=== PATIENT | male | born 1970 | race Caucasian/White ===

== ENCOUNTER → 2020-07-13 09:56 | Outpatient (CLI) | payer OTHER, SELFPAY ==
--- NOTE | 2020-07-13 10:01 | DI.US.S_ITS ---
PROCEDURE: US ABDOMEN LIMITED INDICATIONS: Periumbilical swelling, mass or lump TECHNIQUE: Real-time focused scanning was performed of the abdomen, with image documentation. COMPARISON: None. FINDINGS: There is a periumbilical hernia seen, which contains fat. The hernia neck measures 1.1 cm. Scanning is performed without and without Valsalva maneuver. At its largest, the herniated tissue measures 1 x 1.5 x 1.9 cm. IMPRESSION: Fat containing periumbilical hernia. Dictated by: Erwin Cervantes M.D. on 07/13/2020 at 11:08 Approved by: Erwin Cervantes M.D. on 07/13/2020 at 11:09
== END ==
PROVIDERS: PCP Student in an Organized Health Care Education/Training Program; Referring Provider Student in an Organized Health Care Education/Training Program; Visit Provider Student in an Organized Health Care Education/Training Program
DX: K42.9 Umbilical hernia without obstruction or gangrene (principal)
CPT/HCPCS: 76705

== ENCOUNTER → 2020-12-10 19:12 | Outpatient (ROUT) | payer OTHER, SELFPAY ==
[2020-12-13 01:45] LABS: Chlamydia trachomatis NAA Negative (Negative); Neisseria gonorrhoeae NAA Negative (Negative)
[2020-12-13 16:57] LABS: HIV 1 & 2 Ab/Ag 4th Gen Combo NEGATIVE (NEGATIVE)
== END ==
PROVIDERS: PCP Student in an Organized Health Care Education/Training Program; Visit Provider Student in an Organized Health Care Education/Training Program
DX: Z11.3 Encounter for screening for infections with a predominantly sexual mode of transmission (principal)
CPT/HCPCS: 87389; 87491; 87591

== ENCOUNTER → 2021-03-01 10:21 | Outpatient (CLI) | payer OTHER, SELFPAY ==
[2021-03-01 11:07] LABS: COVID19 -Nasal RAPID Negative (Negative)
== END ==
PROVIDERS: PCP Student in an Organized Health Care Education/Training Program; Visit Provider Physician Assistant
DX: Z20.822 Contact with and (suspected) exposure to COVID-19 (principal)
CPT/HCPCS: 87635

== ENCOUNTER → 2021-05-10 16:00 | Outpatient (CLI) | payer OTHER, SELFPAY ==
[2021-05-10 16:33] LABS: COVID19 -Nasal RAPID Negative (Negative)
== END ==
PROVIDERS: PCP Student in an Organized Health Care Education/Training Program; Referring Provider Physician Assistant; Visit Provider Physician Assistant
DX: Z20.822 Contact with and (suspected) exposure to COVID-19 (principal); R05 Cough; R06.02 Shortness of breath; R51.9 Headache, unspecified; R53.83 Other fatigue
CPT/HCPCS: 87635

== ENCOUNTER → 2021-06-01 08:57 | Outpatient (CLI) | payer OTHER, SELFPAY ==
--- NOTE | 2021-06-01 08:59 | DI.RAD.S_ITS ---
PROCEDURE: XR CHEST 2V INDICATIONS: cough TECHNIQUE: 2 views of the chest were acquired. COMPARISON: None. FINDINGS: Surgical changes and devices: None. Lungs and pleura: Diffuse bilateral prominence of the pulmonary markings. No consolidation is identified. No pleural effusions or pneumothorax. Mediastinum: Mediastinal contours are normal. Heart size is within normal limits. Bones and chest wall: No suspicious bony abnormalities. Soft tissues appear unremarkable. IMPRESSION: Diffuse bilateral prominence of the pulmonary markings. This is concerning for fluid overload or pulmonary vasculature engorgement. Infectious/inflammatory etiology is felt to be less likely. No pleural effusion. Dictated by: Edwin Locke M.D. on 06/01/2021 at 9:30 Approved by: Edwin Locke M.D. on 06/01/2021 at 9:41
== END ==
PROVIDERS: PCP Student in an Organized Health Care Education/Training Program; Referring Provider Nurse Practitioner Family; Visit Provider Nurse Practitioner Family
DX: R05 Cough (principal)
CPT/HCPCS: 71046

== ENCOUNTER 2021-06-01 15:32 | Emergency (ER) | payer OTHER, SELFPAY ==
[2021-06-01 15:46] VITALS: BP 130/79; PULSE 81; RESP 20; TEMP 37.1; O2SAT 96
[2021-06-01 16:21] LABS: Add Manual Diff / Slide Review NO; Basophils Absolute Auto 100 /uL (0-100); Eosinophils Absolute Auto 500 /uL (0-450); Eosinophils Percent Auto 4.4 % (2-4); Hematocrit 45.3 % (41-53); Hemoglobin 15.6 g/dL (13.5-17.5); Lymphocytes Absolute Auto 3700 /uL (1100-4500); Lymphocytes Percent Auto 35.5 % (25-40); Mean Corpuscular HGB Conc 34.3 % (30-36); Mean Corpuscular Hemoglobin 31.5 PG (26-34); Mean Corpuscular Volume 91.7 fL (80-100); Monocytes Absolute Auto 900 /uL (0-900); Monocytes Percent Auto 8.8 % (3-14); Neutrophils Absolute Auto 5200 /uL (1500-7000); Neutrophils Percent Auto 50.3 % (50-75); Platelet Count 247 X10^3/uL (150-400); Red Blood Cell Count 4.94 X10^6/uL (4.5-5.9); Red Cell Distribution Width 13.6 % (11.6-14.8); White Blood Cell Count 10.3 X10^3/uL (4.5-11.0)
[2021-06-01 16:26] LABS: Alanine Aminotransferase 23 IU/L (<50); Albumin 4.3 g/dL (3.5-5.0); Albumin Globulin Ratio 1.4 (1.0-2.8); Alkaline Phosphatase 73 U/L (38-126); Aspartate Aminotransferase 24 IU/L (17-59); BUN Creatinine Ratio 21.7 (6-22); Bilirubin Total 0.5 mg/dL (0.2-1.3); Blood Urea Nitrogen 20 mg/dL (9-20); Calcium 9.1 mg/dL (8.4-10.2); Carbon Dioxide 31 mmol/L (22-32); Chloride 104 mmol/L (98-107); Creatine Kinase 93 U/L (55-170); Estimated Glomerular Filt Rate > 60.0 mL/min (>60); Glucose 126 mg/dL (70-100); HEMOLYSIS < 15 (0-50); Lipase 97 U/L (23-300); Potassium 3.9 mmol/L (3.4-5.1); Sodium 140 mmol/L (137-145); Total Protein 7.3 g/dL (6.3-8.2)
[2021-06-01 16:38] LABS: NT-proBNP (BNP-Adult 18+) 19 pg/mL (<125); Troponin I < 0.012 ng/mL (0.01-0.034)
--- NOTE | 2021-06-01 17:57 | ED_ITS ---
HPI - Recheck/Abnormal Lab/Rx <MARY Hercules - Last Filed: 06/01/21 18:34> General Chief Complaint: Recheck/Abnormal Lab/Rx Stated Complaint: abnormal chest x ray Time Seen by Provider: 06/01/21 17:01 Source: patient Mode of arrival: Ambulatory History of Present Illness HPI narrative: The patient is a 50-year-old male current smoker with history of hypothyroidism who presents with a chief complaint of a cough for the past few weeks. He and his have had cough, headache, general malaise for the past 2 weeks or so. She tested positive for coronavirus this morning. He states that he went to the walk-in clinic and was sent here because of his chest x-ray results. He does the negative for coronavirus today. He denies any chest pain shortness of breath, denies any lightheadedness or dizziness, denies any abdominal pain nausea vomiting or diarrhea. He states he feels tired, but overall well. Related Data Home Medications Medication Instructions Recorded Confirmed levothyroxine 125 mcg tablet 125 mcg PO DAILY 08/27/20 06/01/21 Previous Rx's Medication Instructions Recorded colchicine 0.6 mg capsule 0.6 mg PO DAILY #3 cap 06/26/20 benzonatate 100 mg capsule 100 mg PO BID PRN #20 cap 06/01/21 (Alida Prescott) prednisone 20 mg tablet 40 mg PO DAILY 5 Days #10 tab 06/01/21 Allergies Allergy/AdvReac Type Severity Reaction Status Date / Time No Known Drug Allergies Allergy Verified 06/01/21 08:00 Review of Systems <MARY Hercules - Last Filed: 06/01/21 18:34> Review of Systems Narrative: GENERAL: Denies chills, fatigue, malaise, fever, sweats. HEENT: Denies sinus pain, ear pain, sore throat, difficulty swallowing, dizziness. RESPIRATORY: See HPI CARDIOVASCULAR: Denies chest pain, palpitations, orthopnea, edema, GASTROINTESTINAL: Denies nausea, vomiting, abdominal pain, diarrhea, constipation, melena. : Denies dysuria, frequency, incontinence, hematuria, urinary retention. MUSCULOSKELETAL: denies weakness, joint pain, or bony pain SKIN: Denies rash, skin lesions, or other NEUROLOGIC: Denies weakness, headache, numbness, change in speech, confusion, seizures, incoordination. PSYCHIATRIC: No concerning psychosocial issues. 12 point review of systems is negative except for those stated above Patient History <Jayla CalderónMARY - Last Filed: 06/01/21 18:34> Medical History Gout Thyroid disease Surgical History History of ankle surgery Hx of hernia repair Family History Mother Diabetes mellitus Social History marital status: unknown household members: significant other occupational status: employed Smoking Status: Current every day smoker alcohol intake: current substance use type: does not use Smoking Status: Current every day smoker Exam <Jayla MARY Calderón - Last Filed: 06/01/21 18:34> Narrative Exam Narrative: GENERAL: This is a well-nourished, well-developed patient, no acute distress HEAD: Atraumatic. Normocephalic. No temporal or scalp tenderness. EYES: Pupils equal round and reactive. Extraocular motions intact. No scleral icterus. No injection or drainage. ENT: Nose without bleeding, purulent drainage or septal hematoma. Wearing a mask Airway patent. NECK: Trachea midline. No JVD or lymphadenopathy. Supple, nontender, no meningeal signs. CARDIOVASCULAR: Regular rate and rhythm RESPIRATORY: Clear to auscultation. Breath sounds equal bilaterally. No wheezes, rales, or rhonchi. No cough. No increased respiratory effort. Speaking full sentences. No edema noted GASTROINTESTINAL: Abdomen soft, non-tender, nondistended. No hepato- splenomegaly, or palpable masses. No guarding. EXTREMITIES: No clubbing, cyanosis, or edema. No joint tenderness, effusion, or edema noted. BACK: Nontender without deformity or crepitance. No flank tenderness. NEURO: AOx3. SKIN: No rash or erythema on visible skin Initial Vital Signs Initial Vital Signs: Vital Signs Temperature 98.8 F 06/01/21 15:46 Pulse Rate 81 06/01/21 15:46 Respiratory Rate 20 06/01/21 15:46 Blood Pressure 130/79 06/01/21 15:46 Pulse Oximetry 96 06/01/21 15:46 <Jem Jarvis DO - Last Filed: 06/01/21 18:36> Initial Vital Signs Initial Vital Signs: Vital Signs Temperature 98.8 F 06/01/21 15:46 Pulse Rate 81 06/01/21 15:46 Respiratory Rate 20 06/01/21 15:46 Blood Pressure 130/79 06/01/21 15:46 Pulse Oximetry 96 06/01/21 15:46 Course <MARY Hercules - Last Filed: 06/01/21 18:34> Orders Ordered: ED Orders 06/01/21 15:53 EKG-12 Lead Stat 06/01/21 16:01 BNP [NT-proBNP (BNP-Adult 18+)] Stat Complete Blood Count AUTO DIFF Stat Comprehensive Metabolic Panel Stat Lipase Stat Troponin & CK Cardiac Panel Stat Vital Signs Vital signs: Vital Signs - 8 hr 06/01/21 15:46 Temperature 98.8 F Pulse Rate 81 Respiratory Rate 20 Blood Pressure 130/79 Pulse Oximetry 96 <Jem Jarvis DO - Last Filed: 06/01/21 18:36> Orders Ordered: ED Orders 06/01/21 15:53 EKG-12 Lead Stat 06/01/21 16:01 BNP [NT-proBNP (BNP-Adult 18+)] Stat Complete Blood Count AUTO DIFF Stat Comprehensive Metabolic Panel Stat Lipase Stat Troponin & CK Cardiac Panel Stat Vital Signs Vital signs: Vital Signs - 8 hr 06/01/21 15:46 Temperature 98.8 F Pulse Rate 81 Respiratory Rate 20 Blood Pressure 130/79 Pulse Oximetry 96 MDM - Recheck/Abnormal Lab/Rx <MARY Hercules - Last Filed: 06/01/21 18:34> Lab Data Result diagrams: 06/01/21 16:01 06/01/21 16:01 Labs: Lab Results 06/01/21 06/01/21 Range/Units 16:01 16:01 WBC 10.3 (4.5-11.0) X10^3/uL RBC 4.94 (4.5-5.9) X10^6/uL Hgb 15.6 (13.5-17.5) g/dL Hct 45.3 (41-53) % MCV 91.7 (80-100) fL MCH 31.5 (26-34) PG MCHC 34.3 (30-36) % RDW 13.6 (11.6-14.8) % Plt Count 247 (150-400) X10^3/uL Neut % (Auto) 50.3 (50-75) % Lymph % (Auto) 35.5 (25-40) % Clinton % (Auto) 8.8 (3-14) % Eos % (Auto) 4.4 H (2-4) % Baso % (Auto) 1.0 (0-2) % Neut # (Auto) 5200 (0022-7936) /uL Lymph # (Auto) 3700 (2125-6254) /uL Clinton # (Auto) 900 (0-900) /uL Eos # (Auto) 500 H (0-450) /uL Baso # (Auto) 100 (0-100) /uL Sodium 140 (137-145) mmol/L Potassium 3.9 (3.4-5.1) mmol/L Chloride 104 (98-107) mmol/L Carbon Dioxide 31 (22-32) mmol/L BUN 20 (9-20) mg/dL Creatinine 0.92 (0.66-1.25) mg/dL Estimated GFR > 60.0 (>60) mL/min BUN/Creatinine Ratio 21.7 (6-22) Glucose 126 H (70-100) mg/dL Calcium 9.1 (8.4-10.2) mg/dL Total Bilirubin 0.5 (0.2-1.3) mg/dL AST 24 (17-59) IU/L ALT 23 (<50) IU/L Alkaline Phosphatase 73 (38-126) U/L Total Creatine Kinase 93 (55-170) U/L CK-MB (CK-2) TNP CK-MB (CK-2) Rel Index TNP Troponin I < 0.012 (0.01-0.034) ng/mL NT-Pro-B Natriuret Pep 19 (<125) pg/mL Total Protein 7.3 (6.3-8.2) g/dL Albumin 4.3 (3.5-5.0) g/dL Globulin 3.0 (1.7-4.1) g/dL Albumin/Globulin Ratio 1.4 (1.0-2.8) Lipase 97 (23-300) U/L Imaging Data Chest x-ray: Radiologist's Impression: [address] [place] [id number] XRay Report Signed Patient: Nestor Khalil MR#: [id number] : 1970 Acct:[id number] Age/Sex: 50 / M Date of Service: 06/01/21 Loc: RAD Accession Number: [id number] ?? Procedure: XR chest 2V Ordering Provider: Nohemy Redman PROCEDURE:? XR CHEST 2V ? INDICATIONS:? cough ? TECHNIQUE:? 2 views of the chest were acquired.? ? COMPARISON:? None. ? FINDINGS:? ? Surgical changes and devices:? None.? ? Lungs and pleura:? Diffuse bilateral prominence of the pulmonary markings.? No consolidation is identified.? No pleural effusions or pneumothorax.? ? Mediastinum:? Mediastinal contours are normal.? Heart size is within normal limits.? ? Bones and chest wall:? No suspicious bony abnormalities.? Soft tissues appear unremarkable.? ? IMPRESSION:? Diffuse bilateral prominence of the pulmonary markings.? ? This is concerning for fluid overload or pulmonary vasculature engorgement.? Infectious/inflammatory etiology is felt to be less likely. ? No pleural effusion.? ? Dictated by: Edwin Locke M.D. on 06/01/2021 at 9:30 ? ? Approved by: Edwin Locke M.D. on 06/01/2021 at 9:41?? MDM Narrative Medical decision making narrative: The patient is a 50-year-old male who presents with a chief complaint of a cough in general malaise for the past 2 weeks. His has had the same moves diagnosed with coronavirus this morning. His EKG has no acute findings, his lab work is grossly normal, his exam is normal with no shortness of breath, no increased respiratory effort, no peripheral edema. His BNP is 19, he has no signs of heart failure on exam. Vital signs are reassuring and appears well and nontoxic. I discussed that since his tested positive for coronavirus, he likely has that as well and he agrees. Encouraged follow-up with primary care provider and return to the emergency department if needed. Work note was given. No questions or concerns upon discharge patient states understanding return precautions as well as foll ow-up care. <Jem Jarvis, DO - Last Filed: 06/01/21 18:36> Lab Data Labs: Lab Results 06/01/21 06/01/21 Range/Units 16:01 16:01 WBC 10.3 (4.5-11.0) X10^3/uL RBC 4.94 (4.5-5.9) X10^6/uL Hgb 15.6 (13.5-17.5) g/dL Hct 45.3 (41-53) % MCV 91.7 (80-100) fL MCH 31.5 (26-34) PG MCHC 34.3 (30-36) % RDW 13.6 (11.6-14.8) % Plt Count 247 (150-400) X10^3/uL Neut % (Auto) 50.3 (50-75) % Lymph % (Auto) 35.5 (25-40) % Clinton % (Auto) 8.8 (3-14) % Eos % (Auto) 4.4 H (2-4) % Baso % (Auto) 1.0 (0-2) % Neut # (Auto) 5200 (9305-5271) /uL Lymph # (Auto) 3700 (6351-9431) /uL Clinton # (Auto) 900 (0-900) /uL Eos # (Auto) 500 H (0-450) /uL Baso # (Auto) 100 (0-100) /uL Sodium 140 (137-145) mmol/L Potassium 3.9 (3.4-5.1) mmol/L Chloride 104 (98-107) mmol/L Carbon Dioxide 31 (22-32) mmol/L BUN 20 (9-20) mg/dL Creatinine 0.92 (0.66-1.25) mg/dL Estimated GFR > 60.0 (>60) mL/min BUN/Creatinine Ratio 21.7 (6-22) Glucose 126 H (70-100) mg/dL Calcium 9.1 (8.4-10.2) mg/dL Total Bilirubin 0.5 (0.2-1.3) mg/dL AST 24 (17-59) IU/L ALT 23 (<50) IU/L Alkaline Phosphatase 73 (38-126) U/L Total Creatine Kinase 93 (55-170) U/L CK-MB (CK-2) TNP CK-MB (CK-2) Rel Index TNP Troponin I < 0.012 (0.01-0.034) ng/mL NT-Pro-B Natriuret Pep 19 (<125) pg/mL Total Protein 7.3 (6.3-8.2) g/dL Albumin 4.3 (3.5-5.0) g/dL Globulin 3.0 (1.7-4.1) g/dL Albumin/Globulin Ratio 1.4 (1.0-2.8) Lipase 97 (23-300) U/L Discharge Plan Departure Patient Disposition: Home Clinical Impression: Cough URI (upper respiratory infection) Qualifiers: URI type: unspecified viral URI Qualified Code(s): J06.9 - Acute upper respiratory infection, unspecified Instructions: DI for Cough -- Adult, DI for Viral Upper Respiratory Infection -- Adult Activity Restrictions/Additional Instructions: Thank you for trusting us with your care today As discussed, given that your tested positive for rhino virus, it is very likely that you have that is well. Your lab work and evaluation was reassuring today. Please follow-up with primary care provider in the next few days. Please rest and push fluids. Please use [id number] medications as needed and able. I have given you a work note as well as a work note for your Please come back to the emergency department for any acute concerns Prescriptions: No Action benzonatate [Tessalon Perles] 100 mg capsule 100 mg PO BID PRN (Reason: cough) Qty: 20 RF: 0 prednisone 20 mg tablet 40 mg PO DAILY 5 Days Qty: 10 RF: 0 colchicine 0.6 mg capsule 0.6 mg PO DAILY Qty: 3 RF: 0 levothyroxine 125 mcg tablet 125 mcg PO DAILY RF: 0 Referrals: Shanna Elliott PA-C [Primary Care Provider] - Stand Alone Forms: Work Release Note <Jem Jarvis DO - Last Filed: 06/01/21 18:36> [facility] Attestation: Dr Jarvis Co-Sign Statement: I was available for consultation during this patient's emergency department visit. Th is chart is signed by myself for administrative purposes only. I did not have direct contact with this patient during this visit. They were seen independently by the APC.
== END 2021-06-01 18:11 | disposition home or self-care (01) ==
PROVIDERS: Emergency Medicine; Emergency Provider Nurse Practitioner Family; PCP Student in an Organized Health Care Education/Training Program
DX: J06.9 Acute upper respiratory infection, unspecified (principal); Z20.822 Contact with and (suspected) exposure to COVID-19
CPT/HCPCS: 36415; 71046; 80053; 82550; 83690; 83880; 84484; 85025; 87635; 93005; 93010; 99283

== ENCOUNTER → 2021-08-08 15:57 | Outpatient (CLI) | payer OTHER, SELFPAY ==
[2021-08-08 17:00] LABS: COVID19 -Nasal RAPID Negative (Negative)
== END ==
PROVIDERS: PCP Student in an Organized Health Care Education/Training Program; Visit Provider Nurse Practitioner Family
DX: Z20.822 Contact with and (suspected) exposure to COVID-19 (principal); R11.0 Nausea; R53.83 Other fatigue
CPT/HCPCS: 87635

== ENCOUNTER → 2022-12-19 06:51 | Outpatient (CLI) | payer OTHER, SELFPAY ==
--- NOTE | 2022-12-19 06:52 | DI.US.S_ITS ---
PROCEDURE: US PERIPH VENOUS LOW EXTREM LT INDICATIONS: EDEMA TECHNIQUE: Real-time imaging, as well as color and pulse Doppler interrogation, were performed of the lower extremity deep veins from the inguinal ligament to the popliteal fossa. COMPARISON: None. FINDINGS: The common femoral, femoral and popliteal veins are normally compressible, and free of intraluminal thrombus. Color and pulse Doppler demonstrate normal phasic intraluminal flow. There is normal augmentation response to distal compression maneuver. IMPRESSION: Negative examination for DVT. Dictated by: Bud Solorzano M.D. on 12/19/2022 at 8:00 Approved by: Bud Solorzano M.D. on 12/19/2022 at 8:00
== END ==
PROVIDERS: PCP Student in an Organized Health Care Education/Training Program; Referring Provider Registered Nurse; Visit Provider Registered Nurse
DX: M79.89 Other specified soft tissue disorders (principal)
CPT/HCPCS: 93971

== ENCOUNTER → 2022-12-19 15:26 | Outpatient (CLI) | payer OTHER, SELFPAY ==
--- NOTE | 2022-12-19 | DI.RAD.S_ITS ---
PROCEDURE: XR TIBIA FIBULA LT 2V INDICATIONS: PAIN AND SWELLING IN LEFT LOWER LEG TECHNIQUE: 2 views of the tibia and fibula were acquired. COMPARISON: None. FINDINGS: Bones: No acute fractures or dislocations. No suspicious bony lesions. Soft tissues: No suspicious soft tissue calcifications or masses. IMPRESSION: No acute osseous abnormality. If the symptoms persist, consider cross sectional imaging such as MRI or CT for further assessment. Approved by: Pascual Flood M.D. on 12/20/2022 at 10:28
== END ==
PROVIDERS: PCP Student in an Organized Health Care Education/Training Program; Referring Provider Physician Assistant; Visit Provider Physician Assistant
DX: M79.662 Pain in left lower leg (principal); M79.89 Other specified soft tissue disorders
CPT/HCPCS: 73590; 93971

== ENCOUNTER → 2023-06-19 07:45 | Outpatient (CLI) | payer OTHER, SELFPAY ==
[2023-06-19 09:01] LABS: Occult Blood 1 Negative (Negative); Occult Blood 2 Negative (Negative); Occult Blood 3 NEG (Negative)
== END ==
PROVIDERS: Physician Assistant; PCP Student in an Organized Health Care Education/Training Program; Referring Provider Urology; Visit Provider Urology
DX: R19.7 Diarrhea, unspecified (principal)
CPT/HCPCS: 82270; 87045; 87177; 87329; 87899

== ENCOUNTER → 2023-06-29 16:50 | Outpatient (CLI) | payer OTHER, SELFPAY | PROVIDERS: PCP Student in an Organized Health Care Education/Training Program; Referring Provider Urology; Visit Provider Urology | DX: R19.7 Diarrhea, unspecified (principal) | CPT/HCPCS: 87177; 87329; 87493 ==

== ENCOUNTER → 2023-11-13 15:42 | Outpatient (CLI) | payer OTHER, SELFPAY ==
--- NOTE | 2023-11-13 15:44 | DI.RAD.S_ITS ---
PROCEDURE: XR CHEST 2V INDICATIONS: wheezing and crackles lower lung lacy TECHNIQUE: 2 views of the chest were acquired. COMPARISON: [facility], CR, XR CHEST 2V, 06/01/2021, 8:57. FINDINGS: Surgical changes and devices: None. Lungs and pleura: An incomplete inspiratory result is noted, causing a crowded appearance to the lung markings. No focal infiltrates are seen. Generalized interstitial prominence can be seen. No pneumothorax or significant pleural effusions are seen. Mediastinum: Mediastinal contours are normal. Heart size is at the upper limits of normal. Bones and chest wall: No suspicious bony abnormalities. Age-appropriate bony degenerative changes are seen. Soft tissues appear unremarkable. IMPRESSION: Generalized interstitial prominence can be seen, which is highly suspicious for pulmonary edema. The heart size is at the upper limits of normal. Dictated by: Erwin Cervantes M.D. on 11/13/2023 at 16:19 Approved by: Erwin Cervantes M.D. on 11/13/2023 at 16:20
== END ==
PROVIDERS: PCP Student in an Organized Health Care Education/Training Program; Referring Provider Physician Assistant; Visit Provider Physician Assistant
DX: R06.2 Wheezing (principal)
CPT/HCPCS: 71046